=== PATIENT | male | born 1950 | race African-American/Black ===

== ENCOUNTER 2021-04-21 06:16 | Day surgery (SDC) | payer OTHER ==
[2021-04-16 12:09] VITALS: BMI 28.5
[2021-04-21] MEDS ORDERED: MIDAZOLAM HCL 2 MG/2 ML SINGLE DOSE VIAL ONE (07:21)
[2021-04-21] MEDS ORDERED: PROPOFOL 20 ML ONE (07:21)
[2021-04-21] MEDS ORDERED: LIDOCAINE HCL 2% (20ML MULTI-DOSE VIAL) ONE (07:57)
[2021-04-21] MEDS ORDERED: BUPIVACAINE HCL 50 ML ONE (07:57)
[2021-04-21] MEDS ORDERED: ceFAZolin SODIUM 1 GM VIAL ONE (08:19)
[2021-04-21] MEDS ORDERED: LIDOCAINE HCL/PF 2% SDV 5ML VIAL ONE (08:19)
[2021-04-21] MEDS ORDERED: ONDANSETRON 4 MG/2 ML VIAL ONE (08:19)
[2021-04-21 09:50] VITALS: TEMP 98.2
[2021-04-21] MEDS ORDERED: ERGOCALCIFEROL (VIT D2) 50,000 UNIT (1.25 MG) CAPSULE PO SCH (10:00)
[2021-04-21] MEDS ORDERED: PATIENT'S OWN MEDICATION (NON-FORMULARY) (Vitamin B Complex [Vitamin B Complex] 1 EACH Cap PO SCH (10:00)
[2021-04-21] MEDS ORDERED: HYDROCHLOROTHIAZIDE 25 MG TABLET (FP) PO SCH (10:00)
[2021-04-21] MEDS ORDERED: FOLIC ACID 1 MG TABLET (FP) PO SCH (10:00)
[2021-04-21 10:09] VITALS: BP 130/76; PULSE 58
[2021-04-21] MEDS ORDERED: metFORMIN HCL 500 MG TABLET (FP) PO SCH (16:30)
== END 2021-04-21 10:30 | disposition home or self-care (01) ==
LOC: FASU 06:16
PROVIDERS: ATTEND Orthopaedic Surgery Orthopaedic Surgery of the Spine
PROC: 0LQ80ZZ Repair Left Hand Tendon, Open Approach (ICD-10-PCS; principal; 2021-04-21 08:34)
DX: M20.012 Mallet finger of left finger(s) (principal)
CPT/HCPCS: 82962